=== PATIENT | female | born 1995 | race Caucasian/White ===

== ENCOUNTER 2023-11-07 17:02 | Inpatient (IN) ==
[2023-11-07 17:57] LABS: Pregnancy Test, Urine Negative (Negative)
--- NOTE | 2023-11-07 17:57 | Emergency Department Note ---
Impression & Plan Depression, Deliberate self-cutting, Superficial laceration of forearm ED Provider Note ED Provider Note NAME: JOAQUIN YARBROUGH AGE:27 SEX: Female : 1995 ARRIVES VIA: Police INFORMANT: Patient ED PROVIDER(s): Nicolle Angulo DO CHIEF COMPLAINT: Mental health evaluation HPI: This is a 27-year-old female presents to the emergency room for mental health evaluation. Patient made statements of suicidal ideation and did self- harm today by cutting her left forearm. Patient admits to worsening depression over the last week. She does have a history of depression and has previously self-harm. She denies any prior suicide attempt. She denies any homicidal ideation. No recent change in medications or recent illness. PAST MEDICAL HISTORY:See Below PAST SURGICAL HISTORY:See Below FAMILY HISTORY:See Below SOCIAL HISTORY:See Below HOME MEDICATIONS:See Below ALLERGIES:See Below VITALS:See Below PHYSICAL EXAMINATION: GENERAL: alert, well appearing, well nourished, no distress, non-toxic EYE EXAM: normal conjunctiva, PERRL and EOM's grossly intact OROPHARYNX: no exudate, no erythema, lips, buccal mucosa, and tongue normal and mucous membranes are moist NECK: supple, no nuchal rigidity, no adenopathy, non-tender LUNGS: Clear to auscultation. Normal chest wall mechanics, no w/r/r HEART: no murmurs, S1 normal and S2 normal ABDOMEN: abdomen soft, non-tender, normo-active bowel sounds, no masses, no rebound or guarding. BACK: Back is symmetrical on inspection and there is no deformity, no midline tenderness, no CVA tenderness. SKIN: no rashes, petechiae, orbruising UPPER EXTREMITIES: upper extremities are grossly normal. FROM, nml pulses b/l. 3 superficial horizontal lacerations noted to the left ventral distal forearm, no active bleeding. LOWER EXTREMITIES: No pitting edema. FROM, nml pulses b/l. NEURO EXAM: Normal sensorium, cranial nerves II-XII grossly intact, normal speech, no facial droop,nogross weakness of arms, no gross weakness of legs. Gross sensation intact. No ataxia. Vital Signs: reviewed and remarkable Differential Diagnosis: mood disorder, suicidal ideation, anxiety, depression, substance abuse, toxidrome, infection, hypoglycemia, electrolyte abnormalities, ICH as well as others were considered. MEDICAL DECISION MAKING: This is a 27 yo female who presents to mental health evaluation and admits to worsening depression and self harm. VS stable. Protocol labs and urine collected ans sent for analysis and were reassuring. She was seen by employment case manager and referred for additional evaluation. Patient accepted to . 201 signed by me. Consultation(s): 2209: Seenby employment case manager and referred to for additional inpatient evaluation. Patient in agreement with need for inpatient treatment. ER Treatment Provided: See below 2214: 201 signed by me. Patient accepted at . Diagnostics Interpreted By Me: -Laboratory studies: As stated above and show below. Triage Nursing Note Reviewed Prior/Outside Records Reviewed Past Med/Surg History Medical History History of COVID-19 08/2020; fatigue, diarrhea; resolved. Dysphagia Gastroparesis Anal fissure hx IBS (irritable bowel syndrome) GERD (gastroesophageal reflux disease) Anemia hx Mood disorder Anxiety no meds Surgical History History of cystoscopy History of colonoscopy History of esophagogastroduodenoscopy (EGD) History of wisdom tooth extraction Family History Grandmother (Maternal) Ulcerative colitis Family hx colonic polyps Ovarian cancer Lymphoma Grandfather (Paternal) Family history of diabetes mellitus Heart disease Other No family history of adverse response to anesthesia Social History Smoking Status: Never smoker Second Hand Exposure: Yes (MOTHER SMOKES); Do You Dip or Chew Tobacco: No; Hx Alcohol Use: No Hx Substance Use: No Preferred Language: Slovak Communication Ability: Effective Visual Impairment: No Limitations Hearing Ability: Normal Labor Relations Supervisor Required: No Beliefs That Will Affect Care: None marital status: single Current Living Situation: Other Current Living Situation Comment: WITH 2 ROOMMATES/OFF CAMPUS current occupational status: student Feels Safe at Home: Yes Childhood Exposure to Second-Hand Smoke: Yes caffeine: No during the past year weight has: remained stable Dental Care, Regularly: Yes Physical Activity Frequency: 1-2 Times per Week Seatbelt Use: always Sunscreen Use: Yes Gender Identity: Female Assistive Devices: Glasses Allergies Allergies Allergy/AdvReac Type Severity Reaction Status Date / Time No Known Allergies Allergy Verified 09/01/23 10:34 Home Meds Home Medications Medication Instructions Recorded Confirmed norethindrone 1 mg-ethinyl 1 tab PO QPM 02/26/21 11/07/23 estradiol 10 mcg (24)-iron 10 mcg(2) tablet (Lo Loestrin Fe) cholecalciferol (vitamin D3) 50 50 mcg PO DAILY 02/20/23 11/07/23 mcg (2,000 unit) capsule duloxetine 60 mg capsule,delayed 60 mg PO DAILY 05/31/23 11/07/23 release (Cymbalta) mirtazapine 15 mg tablet 15 mg PO HS 05/31/23 11/07/23 omeprazole 40 mg capsule,delayed 40 mg PO BID 05/31/23 11/07/23 release prochlorperazine maleate 10 mg 10 mg PO Q6 PRN nausea/anxiety 05/31/23 11/07/23 tablet (Compazine) Previous Rx's Medication Instructions Recorded famotidine 20 mg tablet 20 mg PO .qhs #30 tabs 02/26/21 hydroxyzine HCl 10 mg tablet 10 mg PO HS PRN pain #30 tabs 10/31/22 prucalopride 2 mg tablet 2 mg PO DAILY constipation #30 tabs 09/25/23 (Motegrity) Results & Data (ED) Vital Signs Vital Signs - 24 hr 11/07/23 21:27 Temperature 36.9 C Temperature Source Oral Pulse Rate [Left Finger] 89 Pulse Rhythm [Left Finger] Regular Pulse Strength [Left Finger] Normal Respiratory Rate 19 Respiratory Effort / Characteristics Non-Labored Spontaneous Respiratory Depth Normal Blood Pressure [Right Arm] 120/78 Blood Pressure Mean [Right Arm] 92 Pulse Oximetry 97 Oxygen Delivery Method Room Air Laboratory Data 11/07/23 18:00 11/07/23 18:00 Lab Results 11/07/23 11/07/23 Range/Units 17:35 18:00 WBC 11.63 H (4.8-10.8) K/ul RBC 4.36 (4.20-5.40) M/uL Hgb 11.2 L (12.0-16.0) g/dl Hct 35.7 L (37.0-47.0) % MCV 81.9 (80.0-100.0) fL MCH 25.7 (25.0-34.0) pg MCHC 31.4 L (32.0-36.0) g/dL RDW Std Deviation 39.2 (36.4-46.3) fL RDW Coeff of Kassandra 13.2 (11.5-14.5) % Plt Count 340 (130-400) K/uL MPV 8.6 L (9.4-12.4) fL Immature Gran % (Auto) 0.3 % Neut % (Auto) 72.7 % Lymph % (Auto) 20.2 % Ritchie % (Auto) 6.2 % Eos % (Auto) 0.3 % Baso % (Auto) 0.3 % Neut # (Auto) 8.45 H (1.40-6.50) K/uL Lymph # (Auto) 2.35 (1.20-3.40) K/uL Ritchie # (Auto) 0.72 H (0.11-0.59) K/uL Eos # (Auto) 0.04 (0.00-0.50) K/uL Baso # (Auto) 0.04 (0.00-0.20) K/uL Immature Gran # (Auto) 0.03 (0.01-0.20) K/uL Sodium 138 (136-145) mmol/L Potassium 3.7 (3.5-5.1) mmol/L Chloride 105 (98-107) mmol/L Carbon Dioxide 25 (21-32) mmol/L Anion Gap 8 (3-11) BUN 11 (6-23) mg/dl Creatinine 0.86 (0.6-1.2) mg/dl Est Cr Clr Drug Dosing 108.7 ml/min Est GFR ( Amer) 107.3 ml/min Est GFR (Non-Af Amer) 92.6 ml/min BUN/Creatinine Ratio 12.8 (10-20) Glucose 134 H (70-99(Fasting)) mg/dl Calcium 9.2 (8.6-10.3) mg/dl Total Bilirubin 0.3 (0.2-1.0) mg/dl AST 17 (13-39) U/L ALT 9 (7-52) U/L Alkaline Phosphatase 92 (34-104) U/L Total Protein 7.9 (6.0-8.3) gm/dl Albumin 4.4 (3.4-5.0) gm/dl Globulin 3.5 (2.5-4.0) gm/dl Albumin/Globulin Ratio 1.3 (0.9-2) TSH 1.094 (0.300-4.500) uIu/ml HCG, Qual Negative (Negative) Urine Color Dark Yellow Urine Appearance Clear (Clear) Urine pH 5.5 (4.5-7.5) Ur Specific Pilger 1.031 H (1.000-1.030) Urine Protein Trace H (Negative) Urine Glucose (UA) Negative (Negative) Urine Ketones Trace H (Negative) Urine Blood 1+ H (Negative) Urine Nitrite Negative (Negative) Urine Bilirubin Negative (Negative) Urine Urobilinogen Negative (Negative) Ur Leukocyte Esterase 1+ H (Negative) Urine WBC (Auto) 11-20 H (0-5) /hpf Urine RBC (Auto) >20 H (0-2) /hpf U Hyaline Cast (Auto) 3-5 H (0-2) /lpf U Epithel Cells (Auto) 6-10 H (0-2) /hpf Urine Bacteria (Auto) 2+ H (None Seen) Urine Test Negative (Negative) Salicylates < 3.0 L (3.0-30) mg/dl Urine Opiates Screen Neg (Neg) Ur Methadone, Qual Neg (Neg) Acetaminophen 10 (10-30) ug/ml Urine Barbiturates Neg (Neg) Ur Phencyclidine (PCP) Neg (Neg) U Amphetamin/Meth Scrn Neg (Neg) MDMA (Ecstasy) Screen Neg (Neg) U Benzodiazepines Scrn Neg (Neg) Ur Cocaine Metabolite Neg (Neg) U Marijuana (THC) Screen Neg (Neg) Ethyl Alcohol mg/dL < 10.0 (<10.0) mg/dl SARS-CoV-2, RNA, NAAT NEGATIVE (NEGATIVE) Administered Medications Duloxetine HCl (Duloxetine Hcl 20 Mg Cap) 80 mg PO DAILY FLOYD Stop: 12/08/23 12:59 Last Admin: 11/08/23 13:24 Dose: 80 mg Documented By: TUAN Hydroxyzine HCl (Hydroxyzine Hcl 25 Mg Tab) 25 mg PO Q4H PRN PRN Reason: Anxiety Stop: 12/07/23 23:07 Last Admin: 11/08/23 00:40 Dose: 25 mg Documented By: ONEAL Pantoprazole Sodium (Pantoprazole 40 Mg Tab) 40 mg PO BID FLOYD Stop: 12/08/23 12:29 Last Admin: 11/08/23 13:24 Dose: 40 mg Documented By: TUAN Vitamin D (Cholecalciferol 25 Mcg (1000 Units) Tab) 50 mcg PO DAILY FLOYD Stop: 12/08/23 12:29 Last Admin: 11/08/23 13:24 Dose: 50 mcg Documented By: TUAN Discontinued Medications Mirtazapine (Mirtazapine Tab 15 Mg Tab) 15 mg PO ONE STA Stop: 11/08/23 00:12 Last Admin: 11/08/23 00:41 Dose: 15 mg Documented By: ONEAL Discharge Plan Visit Data Chief Complaint: Mental Health Evaluation Stated Complaint: suicidal thoughts ED Provider: Nicolle Angulo Discharge Problem: Depression, Deliberate self-cutting, Superficial laceration of forearm Patient Disposition: Admitted As Inpatient Discharge Instructions Interventions: ED Discharge Assessment Last Done: 11/07/23 22:43
[2023-11-07 18:00] LABS: Appearance Urine Clear (Clear); Bacteria Urine Automated 2+ (None Seen); Bilirubin Urine Negative (Negative); Blood Urine 1+ (Negative); Color Urine Dark Yellow; Glucose Urine UA Negative (Negative); Ketones Urine Trace (Negative); Leukocyte Esterase Urine 1+ (Negative); Nitrite Urine Negative (Negative); Protein Urine Trace (Negative); RBC Urine Automated >20 /hpf (0-2); Specific Gravity Urine 1.031 (1.000-1.030); Urobilinogen Urine Negative (Negative); pH Urine 5.5 (4.5-7.5)
[2023-11-07 18:30] LABS: Amphetamines+Metham, Urine Neg (Neg); Barbiturates, Urine Neg (Neg); Benzodiazepine, Urine Neg (Neg); Cocaine, Urine Neg (Neg); MDMA (Ecstacy), Urine Neg (Neg); Marijuana, Urine Neg (Neg); Methadone, Urine Neg (Neg); Opiate, Urine Neg (Neg); Phencyclidine, Urine Neg (Neg)
[2023-11-07 18:35] LABS: Basophils # (auto) 0.04 K/uL (0.00-0.20); Basophils % (auto) 0.3 %; Eosinophils # (auto) 0.04 K/uL (0.00-0.50); Eosinophils % (auto) 0.3 %; Hematocrit (blood only) 35.7 % (37.0-47.0); Hemoglobin 11.2 g/dl (12.0-16.0); Immature Granulocytes # (auto) 0.03 K/uL (0.01-0.20); Immature Granulocytes % (auto) 0.3 %; Lymphocytes # (auto) 2.35 K/uL (1.20-3.40); Lymphocytes % (auto) 20.2 %; Mean Corpuscular Hemoglobin 25.7 pg (25.0-34.0); Mean Corpuscular Hgb Conc 31.4 g/dL (32.0-36.0); Mean Corpuscular Volume 81.9 fL (80.0-100.0); Mean Platelet Volume 8.6 fL (9.4-12.4); Monocytes # (auto) 0.72 K/uL (0.11-0.59); Monocytes % (auto) 6.2 %; Neutrophils # (auto) 8.45 K/uL (1.40-6.50); Neutrophils % (auto) 72.7 %; Platelet Count 340 K/uL (130-400); RDW Coefficient of Variation 13.2 % (11.5-14.5); RDW Standard Deviation 39.2 fL (36.4-46.3); Red Blood Count 4.36 M/uL (4.20-5.40); White Blood Count 11.63 K/ul (4.8-10.8)
[2023-11-07 18:49] LABS: Pregnancy Test, Serum Negative (Negative)
[2023-11-07 18:52] LABS: Acetaminophen 10 ug/ml (10-30); Albumin Globulin Ratio 1.3 (0.9-2); Albumin Level 4.4 gm/dl (3.4-5.0); BUN Creatinine Ratio 12.8 (10-20); Bilirubin,Total 0.3 mg/dl (0.2-1.0); Calcium 9.2 mg/dl (8.6-10.3); Creatinine Clr Calc Pharmacy 108.7 ml/min; Est GFR (African American) 107.3 ml/min; Est GFR (Non-African American) 92.6 ml/min; Globulin 3.5 gm/dl (2.5-4.0); Potassium 3.7 mmol/L (3.5-5.1); Salicylate < 3.0 mg/dl (3.0-30); Total Protein 7.9 gm/dl (6.0-8.3)
[2023-11-07 19:05] LABS: Thyroid Stimulating Hormone 1.094 uIu/ml (0.300-4.500)
[2023-11-07] MEDS ORDERED: ACETAMINOPHEN 325 MG TAB PO PRN (23:08)
[2023-11-07] MEDS ORDERED: MAGNESIUM HYDROXIDE SUSP 30 ML UDC PO PRN (23:08)
[2023-11-07] MEDS ORDERED: ALUMINUM/MAGNESIUM SUSP 30 ML UDC PO PRN (23:08)
[2023-11-07] MEDS ORDERED: BISMUTH SUBSALICYLATE LIQD 236 ML PO PRN (23:08)
[2023-11-07] MEDS ORDERED: SODIUM CHLORIDE 0.65% NA SOLN 45 ML (OCEAN) PRN (23:08)
[2023-11-07] MEDS ORDERED: hydrOXYzine HCl 25 MG TAB PO PRN (23:08)
[2023-11-08] MEDS: hydrOXYzine HCl 25 MG TAB PO PRN (00:40)
[2023-11-08] MEDS: MIRTAZAPINE TAB 15 MG TAB PO STA (00:41)
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
[2023-11-08] MEDS ORDERED: hydrOXYzine HCl 10 MG TAB PO PRN (12:11)
[2023-11-08] MEDS ORDERED: PROCHLORPERAZINE MALEATE 10 MG TAB PO PRN (12:11)
[2023-11-08] MEDS: PANTOprazole 40 MG TAB PO SCH (13:24)
[2023-11-08] MEDS: DULoxetine HCL 20 MG CAP PO SCH (13:24)
[2023-11-08] MEDS: CHOLECALCIFEROL 25 MCG (1000 UNITS) TAB PO SCH (13:24)
[2023-11-08] MEDS: MIRTAZAPINE TAB 15 MG TAB PO SCH (21:02)
[2023-11-08] MEDS: FAMOTIDINE 20 MG TAB PO SCH (21:03)
[2023-11-08] MEDS ORDERED: MIRTAZAPINE TAB 15 MG TAB PO SCH (22:00)
[2023-11-08] MEDS: DULoxetine HCL 60 MG CAP PO SCH (23:32)
[2023-11-09] MEDS: LO LOESTRIN FE PO SCH (08:57)
[2023-11-09] MEDS: PRUCALOPRIDE SUCCINATE 2 MG PO SCH (08:58)
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
== END 2023-11-09 17:21 | disposition home or self-care (01) | DRG 881 ==
LOC: ED 17:02 → 3S 21:55